=== PATIENT | female | born 1990 ===

== ENCOUNTER 2021-08-18 19:01 | Emergency (ER) | payer SELFPAY ==
[~2021-08-18] VITALS: Ht 167.6 cm; Wt 68.2 kg
[2021-08-18] MEDS ORDERED: DOXYCYCLINE HY100 MG PO (21:36)
[2021-08-18 21:46] VITALS: BP 140/94; PULSE 82; TEMP 99
== END 2021-08-18 21:46 | disposition home or self-care (01) ==
LOC: COL.ER 19:01
DX: J32.9 Chronic sinusitis, unspecified (principal)